=== PATIENT | female | born 1985 | race Caucasian/White ===

== ENCOUNTER 2022-11-17 16:13 | Inpatient (IN) ==
[2022-11-17] MEDS ORDERED: OXYTOCIN 30 UNITS/500 ML BAG IV PRN ×3 (16:26→22:10)
[2022-11-17] MEDS ORDERED: LIDOCAINE 1% LOCAL 20 ML VIAL INFIL PRN (16:26)
[2022-11-17 16:52] LABS: Hematocrit (blood only) 33.7 % (37.0-47.0); Mean Corpuscular Hemoglobin 28.3 pg (25.0-34.0); Mean Corpuscular Hgb Conc 32.6 g/dL (32.0-36.0); Mean Corpuscular Volume 86.6 fL (80.0-100.0); Mean Platelet Volume 9.7 fL (9.4-12.4); Platelet Count 270 K/uL (130-400); RDW Coefficient of Variation 13.5 % (11.5-14.5); RDW Standard Deviation 41.6 fL (36.4-46.3); Red Blood Count 3.89 M/uL (4.20-5.40); White Blood Count 8.81 K/ul (4.8-10.8)
--- NOTE | 2022-11-17 17:10 | History & Physical Report ---
Date of Service November 17, 2022 Assessment & Plan (1) Supervision of elderly multigravida: Plan: IUP at 41 weeks in active labor- grand multip GBS -neg requesting epidural analgesia anticipate vaginal History of Present Illness Primary Care Provider: Niko Iqbal Patient is a 36-year-old 6 para 5-0-0-5 female who presents at 41 weeks in active labor following cervical exam in the office earlier today. She is not denies ruptured membranes or bloody show. Contractions have been regular for the last 3 hours. GBS is negative. has been complicated by AMA status. testing was reassuring except polyhydramnios was diagnosed today (DVP is 9). Allergies Allergy/AdvReac Type Severity Reaction Status Date / Time No Known Allergies Allergy Verified 11/17/22 09:46 Home Medications Medication Instructions Recorded Confirmed Type prenat.vits,tara,[id number] 1 tab PO DAILY 04/08/22 11/17/22 History Patient History Medical History (Updated 11/17/22 @ 17:04 by Sol Darnell RN) No known health problems Surgical History (Updated 11/17/22 @ 17:04 by Sol Darnell RN) No history of previous surgery Social History (Updated 04/08/22 @ 17:08 by Brenda Ivy) Smoking Status: Never smoker Do You Dip or Chew Tobacco: No; marital status: marital status details: Bob (41) [phone] Current Living Situation: Spouse Current Living Situation Comment: lives with spouse, 5 children, no pets. current occupational status: unemployed Feels Safe at Home: Yes Review of Systems All systems reviewed & are unremarkable except as noted in HPI & below Physical Exam Constitutional: WD/WN, vitals as above Psychiatric: A+Ox3, euthymic affect Genitourinary: OB Exam Abdomen: + vertex, + estimated weight (8-9 pounds) and + regular contractions (Q 3-4 minutes) Manual OB Exam: + cervical dilation 6 cm, + cervical effacement 90% and + station -2 OB Exam Monitor Tracing: + external FHT monitor used, + external uterine monitor used, + category I and + normal FHT variability Coding Level of Care Code None Diagnoses Supervision of elderly multigravida O09.529
[2022-11-17] MEDS: LACTATED RINGER'S 1,000 ML IV PRN ×2 (17:30→21:37)
[2022-11-17] MEDS ORDERED: ePHEDrine sulfate 50 MG/ML AMP ONE (17:39)
[2022-11-17] MEDS ORDERED: SODIUM CHLORIDE 0.9% PF INJ 10 ML VIAL ONE (17:40)
[2022-11-17] MEDS ORDERED: LIDOCAINE 2%/EPINEPHRINE 1:200,000 20 ML PF ONE (17:40)
[2022-11-17] MEDS ORDERED: fentaNYL citrate PF 100 MCG/2 ML VIAL ONE (17:40)
[2022-11-17] MEDS ORDERED: BUPIVACAINE 0.25% PF 30 ML VIAL ONE (17:40)
[2022-11-17] MEDS ORDERED: fentaNYL 2MCG/ML ROPIVACAINE 1.25MG/ML 100 ML BAG EPI ONE (17:40)
[2022-11-17] MEDS ORDERED: BUPIVACAINE 0.25% PF 30 ML VIAL EPI STA (18:32)
[2022-11-17] MEDS ORDERED: ROPIVACAINE 0.5% PF 5 MG/ML 20 ML VIAL EPI PRN (18:32)
[2022-11-17] MEDS ORDERED: LIDOCAINE 2% MPF LOCAL 5 ML VIAL EPI PRN (18:32)
[2022-11-17] MEDS ORDERED: BUPIVACAINE 0.25% PF 30 ML VIAL EPI PRN (18:32)
[2022-11-17] MEDS ORDERED: fentaNYL citrate PF 100 MCG/2 ML VIAL EPI STA (18:32)
[2022-11-17] MEDS ORDERED: NALBUPHINE HCL INJ 10 MG/ML AMP IV PRN (18:32)
[2022-11-17] MEDS ORDERED: diphenhydrAMINE 50 MG/ML VIAL IV PRN (18:32)
[2022-11-17] MEDS ORDERED: SODIUM CHLORIDE 0.9% PF INJ 10 ML VIAL EPI STA (18:32)
[2022-11-17] MEDS ORDERED: SODIUM CHLORIDE 0.9% PF INJ 10 ML VIAL EPI PRN (18:32)
[2022-11-17] MEDS ORDERED: fentaNYL 2MCG/ML ROPIVACAINE 1.25MG/ML 100 ML BAG EPI PRN (18:32)
[2022-11-17] MEDS ORDERED: fentaNYL citrate PF 100 MCG/2 ML VIAL EPI PRN (18:32)
[2022-11-17] MEDS ORDERED: NALOXONE HCL 0.4 MG/1 ML VIAL/CARP IV PRN (18:32)
[2022-11-17] MEDS ORDERED: LIDOCAINE 2%/EPINEPHRINE 1:200,000 20 ML PF EPI STA (18:32)
[2022-11-17] MEDS ORDERED: ONDANSETRON INJ 2 MG/ML 2 ML VIAL IV PRN (18:32)
[2022-11-17] MEDS ORDERED: ePHEDrine sulfate 50 MG/ML AMP IV PRN (18:32)
[2022-11-17] MEDS ORDERED: NALOXONE HCL 1 MG in SODIUM CHLORIDE 0.9% 1000ML 1,000 ML IV PRN (18:32)
--- NOTE | 2022-11-17 18:32 | Anesthesiology Consultation ---
Date of Service November 17, 2022 Assessment & Plan Chart Review Chart Review: Patient NOT seen in Pre Admission Testing and Acceptable Risk for Labor Epidural Consults Requested none ASA ASA2 Proposed Anesthesia Anesthesia Type: Labor Epidural and CSE Risk / Benefits Reviewed With: PT / POA / Parent / Guardian, Accepts Plan and Informed Consent Obtained History Height/Weight Height: 5 ft 6 in Weight: 90.718 kg Allergies Allergy/AdvReac Type Severity Reaction Status Date / Time No Known Allergies Allergy Verified 11/17/22 09:46 Medications Home Medications Medication Instructions Recorded Confirmed Last Taken prenat.vits,tara,[id number] 1 tab PO DAILY 04/08/22 11/17/22 11/03/22 Active Medications Generic Name Dose Route Start Last Admin Trade Name Freq PRN Reason Stop Dose Admin Lactated Ringer's 1,000 mls @ 125 mls/hr 11/17/22 16:26 11/17/22 18:00 Lr IV 11/19/22 16:25 125 mls/hr .Q8H PRN Infusion L&D Protocol Protocol Past Medical History Medical History (Updated 11/17/22 @ 17:04 by Sol Darnell RN) No known health problems Exercise / Class Metabolic Activity II 4-5 Yardwork/Stairs/Walk up hill Past Surgical History Surgical History (Updated 11/17/22 @ 17:04 by Sol Darnell RN) No history of previous surgery Past Anesthesia History No Hx of Anesthesia Complications and No Family Hx of Anesthesia Complications History of PONV No Hx of PONV and No Hx of Motion Sickness Social History Smoking Status: Never smoker Do You Dip or Chew Tobacco: No Hx Alcohol Use: No Hx Substance Use: No Physical Exam Vital Signs Last Vital Signs Pulse 95 H 11/17/22 18:31 Resp 18 11/17/22 17:03 BP 102/67 11/17/22 18:31 Pulse Ox 97 11/17/22 18:26 ENMT Mouth: no dentition abnormality Thyromental Distance: > or= 3.5 Finger Breadths Mallampati Class: II Neck normal visual inspection Respiratory normal respiratory effort Auscultation: lungs clear to auscultation bilaterally Cardiovascular Rate/Rhythm: regular rate and regular rhythm Psychiatric Orientation: alert Testing Laboratory Results 11/17/22 16:36
[2022-11-17] MEDS ORDERED: HYDROCORTISONE ACETATE 25 MG SUPP PR PRN (22:10)
[2022-11-17] MEDS ORDERED: oxyCODONE/ACETAMINOPHEN 5mg/325mg TAB PO PRN (22:10)
[2022-11-17] MEDS ORDERED: DIPHTHERIA/TETANUS/PERTUSSIS Vaccine (Tdap, Age 7+yrs) 0.5mL SYR/VL IM ONE (22:10)
[2022-11-17] MEDS ORDERED: ACETAMINOPHEN 325 MG TAB PO PRN (22:10)
[2022-11-17] MEDS ORDERED: BENZOCAINE 20% AER SPR 82.5 GM CAN EXT PRN (22:10)
--- NOTE | 2022-11-17 22:32 | Delivery Summary ---
Vaginal Delivery Summary Date of Service November 17, 2022 Vaginal Delivery Summary and 1st Degree LAC Patient is a 36-year-old 6 para 5-0-0-5 female who presents at 41 weeks in active labor. She received effective epidural analgesia and progressed to complete after rupturing membranes for clear fluid. She pushed through 1 contraction for delivery of a viable male over intact perineum. The rest of the infant delivered easily and was placed on the mother's abdomen for further attention and drying. He was vigorous and crying moving all 4 limbs. After 1 minute, the cord was clamped and cut. The placenta was expressed intact with a three-vessel cord. bleeding was controlled with dilute Pitocin and fundal massage. A first-degree perineal laceration was repaired with 3-0 chromic in the usual fashion. Estimated blood loss was 200 cc. Mother and infant were doing well after delivery. [facility] [place] Charge Delivery Type Details: and 1st Degree LAC
[2022-11-17] MEDS: IBUPROFEN 600 MG TAB PO PRN (23:10)
--- NOTE | 2022-11-17 23:39 | Anesthesia Procedure Note ---
Date of Service November 17, 2022 Anesthesia Post Epidural Note Vital Signs Vital Signs: Temp Pulse Resp BP Pulse Ox 36.7 C 76 18 108/62 97 11/17/22 22:13 11/17/22 23:27 11/17/22 22:43 11/17/22 23:27 11/17/22 21:46 Pain Intensity Bilateral Episiotomy/Laceration: Pain Intensity: 2 Notes Mental Status: alert / awake / arousable Nausea / Vomiting: adequately controlled Pain: adequately controlled Airway Patency, RR, SpO2: stable & adequate BP & HR: stable & adequate Hydration State: stable & adequate Neuraxial Anesthesia: was administered and sensory block is resolving Anesthetic Complications: no major complications apparent and Pt Satisfied with anesthetic care Epidural: Removed without complications and With tip intact
[2022-11-18] MEDS: IBUPROFEN 600 MG TAB PO PRN ×5 (04:08→21:29)
--- NOTE | 2022-11-18 06:33 | Obstetrical Progress Note ---
Date of Service November 18, 2022 Assessment & Plan (1) care following vaginal delivery: Plan - Overall, feeling well and eating well today - feeding going well without concern - Urinating and passing gas appropriately - Ambulating well in room - Pain controlled w/ Ibuprofen - Hgb 11.0 on 11/17, repeat pending - Vitals stable and wnl - Routine PP care progressing well - Anticipate discharge @ 24-48 hours PP - Recommending f/u outpatient in 6 weeks Admission and Anticipated Discharge Date Admission Date: November 17, 2022 Supervising Physician Co-Signing Physician Notes Resident Physician Supervision Note: I interviewed and examined the patient. Discussed with Dr. Miner and agree with findings and plan as documented in the note. Any exceptions or clarifications are listed here: [None] Documented By: Ciarra Singer MD, FACOG Subjective Patient is a 36F who is PPD #1 following delivery at 41 1/7. She reports feeling well overall this morning. - Ambulation - well throughout room - Voiding/Olivera - independent voids, no dysuria or pressure - Gas/Stool - passing gas, no bowel movement - Diet - regular, no nausea or emesis - Lochia - diminishing, light amount - Infant Feeding Type - breast feeding - Pain Level - 2/10, controlled with Ibuprofen Review of Systems - Denies fever, chills, sweats - Denies shortness of breath, difficulty breathing, chest pain, palpitations, chest pressure. - Denies breast pain. - Denies dysuria. - Denies headache or changes in vision. Review of Systems Review of Systems: All systems reviewed & are unremarkable except as noted in HPI & below Physical Exam Physical Exam: General: Alert, oriented. No acute distress. Cardiac: RRR, normal S1/S2, no murmurs/rubs/gallops. Respiratory: Non-labored, CTAB, no wheezes/rales/rhonchi. Symmetric chest rise. Abdomen: Soft, nontender, nondistended. Bowel sounds present. Uterus: Uterine fundus firm, palpable 2 cm below umbilicus. Lower Extremities: No lower extremity edema or swelling. No deep calf pain. Emmanuel's negative bilaterally. Results & Data Vital Signs (Past 12 Hours) Vital Signs Temp Pulse Pulse Resp BP BP Pulse Ox 11/18/22 04:00 36.5 C 64 16 105/67 98 11/18/22 01:00 36.8 C 72 18 99/60 L 97 11/17/22 23:43 18 11/17/22 22:43 18 11/17/22 22:13 36.7 C 18 11/17/22 23:42 77 117/68 11/17/22 23:27 76 108/62 11/17/22 23:13 86 112/63 11/17/22 22:58 81 111/66 11/17/22 22:44 96 H 127/60 11/17/22 22:28 79 114/68 11/17/22 22:13 90 108/56 L 11/17/22 22:04 77 107/57 L 11/17/22 21:46 94 H 97 11/17/22 21:41 62 98 11/17/22 21:39 67 101/55 L 11/17/22 21:36 88 98 11/17/22 21:30 18 11/17/22 21:30 18 11/17/22 21:31 76 98 11/17/22 21:26 75 88 L 11/17/22 21:24 58 L 122/67 11/17/22 21:21 68 98 11/17/22 21:18 86 92 11/17/22 21:16 108 H 98 11/17/22 21:11 79 98 11/17/22 21:08 88 134/75 11/17/22 21:06 69 97 11/17/22 21:01 96 H 98 11/17/22 20:56 73 98 11/17/22 20:53 69 149/96 H 11/17/22 20:51 77 98 11/17/22 20:46 81 97 11/17/22 20:41 70 98 11/17/22 20:38 71 123/68 11/17/22 20:36 71 98 11/17/22 20:30 18 11/17/22 20:30 36.8 C 18 11/17/22 20:31 96 11/17/22 20:31 90 11/17/22 20:31 74 89 L 11/17/22 20:26 67 97 11/17/22 20:23 74 111/62 11/17/22 20:21 71 97 11/17/22 20:16 73 98 11/17/22 20:00 18 11/17/22 20:00 18 11/17/22 20:11 72 97 11/17/22 20:08 68 113/55 L 11/17/22 20:06 58 L 98 11/17/22 20:01 71 98 11/17/22 19:56 63 98 11/17/22 19:51 89 100 11/17/22 19:50 72 91 11/17/22 19:46 74 98 11/17/22 19:41 84 98 11/17/22 19:30 18 11/17/22 19:30 18 11/17/22 19:38 80 122/68 11/17/22 19:36 81 98 11/17/22 19:31 74 99 11/17/22 19:26 69 99 11/17/22 19:22 75 98/53 L 11/17/22 19:21 75 98 11/17/22 19:16 68 98 11/17/22 19:11 65 98 11/17/22 19:06 73 99 11/17/22 19:07 74 116/72 11/17/22 19:01 94 H 99 11/17/22 19:02 90 117/74 11/17/22 18:58 80 108/65 11/17/22 18:56 72 99 11/17/22 18:51 99 11/17/22 18:51 76 11/17/22 18:51 75 117/69 11/17/22 18:49 90 116/75 11/17/22 18:46 72 99 11/17/22 18:47 75 119/67 11/17/22 18:45 111 H 116/66 11/17/22 18:43 77 117/68 11/17/22 18:41 79 115/67 98 11/17/22 18:39 83 115/58 L 11/17/22 18:37 103 H 108/65 11/17/22 18:36 97 H 98 11/17/22 18:35 101 H 114/73 11/17/22 18:33 78 108/68 11/17/22 18:31 98 11/17/22 18:31 98 H 11/17/22 18:31 95 H 102/67 O2 Del Method 11/18/22 04:00 Room Air 11/18/22 01:00 Room Air 11/17/22 23:43 11/17/22 22:43 11/17/22 22:13 11/17/22 23:42 11/17/22 23:27 11/17/22 23:13 11/17/22 22:58 11/17/22 22:44 11/17/22 22:28 11/17/22 22:13 11/17/22 22:04 11/17/22 21:46 11/17/22 21:41 11/17/22 21:39 11/17/22 21:36 11/17/22 21:30 11/17/22 21:30 11/17/22 21:31 11/17/22 21:26 11/17/22 21:24 11/17/22 21:21 11/17/22 21:18 11/17/22 21:16 11/17/22 21:11 11/17/22 21:08 11/17/22 21:06 11/17/22 21:01 11/17/22 20:56 11/17/22 20:53 11/17/22 20:51 11/17/22 20:46 11/17/22 20:41 11/17/22 20:38 11/17/22 20:36 11/17/22 20:30 11/17/22 20:30 11/17/22 20:31 11/17/22 20:31 11/17/22 20:31 11/17/22 20:26 11/17/22 20:23 11/17/22 20:21 11/17/22 20:16 11/17/22 20:00 11/17/22 20:00 11/17/22 20:11 11/17/22 20:08 11/17/22 20:06 11/17/22 20:01 11/17/22 19:56 11/17/22 19:51 11/17/22 19:50 11/17/22 19:46 11/17/22 19:41 11/17/22 19:30 11/17/22 19:30 11/17/22 19:38 11/17/22 19:36 11/17/22 19:31 11/17/22 19:26 11/17/22 19:22 11/17/22 19:21 11/17/22 19:16 11/17/22 19:11 11/17/22 19:06 11/17/22 19:07 11/17/22 19:01 11/17/22 19:02 11/17/22 18:58 11/17/22 18:56 11/17/22 18:51 11/17/22 18:51 11/17/22 18:51 11/17/22 18:49 11/17/22 18:46 11/17/22 18:47 11/17/22 18:45 11/17/22 18:43 11/17/22 18:41 11/17/22 18:39 11/17/22 18:37 11/17/22 18:36 11/17/22 18:35 11/17/22 18:33 11/17/22 18:31 11/17/22 18:31 11/17/22 18:31 Resident Activity Tracking Resident Involvement: Resident Care Provided Care Provided: OB Delivery
[2022-11-18 06:54] LABS: Hematocrit (blood only) 29.2 % (37.0-47.0); Hemoglobin 9.5 g/dl (12.0-16.0); Mean Corpuscular Hemoglobin 28.1 pg (25.0-34.0); Mean Corpuscular Hgb Conc 32.5 g/dL (32.0-36.0); Mean Corpuscular Volume 86.4 fL (80.0-100.0); Mean Platelet Volume 9.7 fL (9.4-12.4); Platelet Count 219 K/uL (130-400); RDW Coefficient of Variation 13.5 % (11.5-14.5); RDW Standard Deviation 41.6 fL (36.4-46.3); Red Blood Count 3.38 M/uL (4.20-5.40); White Blood Count 10.96 K/ul (4.8-10.8)
[2022-11-18] MEDS: DOCUSATE SODIUM 100 MG CAP PO SCH ×2 (09:12→21:06)
[2022-11-18] MEDS: PRENATAL VITAMIN 1 TAB PO SCH (09:12)
[2022-11-18] MEDS ORDERED: bisacodyL 5 MG TABEC PO SCH (20:00)
[2022-11-19] MEDS: IBUPROFEN 600 MG TAB PO PRN ×2 (01:27→06:22)
--- NOTE | 2022-11-19 06:35 | Obstetrical Progress Note ---
Date of Service November 19, 2022 Assessment & Plan (1) care following vaginal delivery: day 2 the patient is doing well she has no extremity pain she has minimal bleeding she is breast-feeding she has no depression she wishes to go home she will be discharged later today Subjective Ambulation: ambulating normally Voiding: no voiding problems Passing Gas:: Yes Diet Tolerance:: regular diet Lochia:: Small Constitutional: + as per Subjective / HPI Physical Exam Constitutional WD/WN, vitals as above well developed and well nourished Respiratory normal respiratory effort, lungs clear to auscultation normal respiratory effort Cardiovascular RRR, no murmur, no edema Gastrointestinal (Abdomen) normal bowel sounds, soft, nontender, no hepatosplenomegaly Results & Data Vital Signs (Past 12 Hours) Vital Signs Temp Pulse Resp BP Pulse Ox O2 Del Method 11/18/22 23:36 98.1 F 77 19 97/59 L 97 Room Air 11/18/22 19:15 98.2 F 73 18 100/63 98 Room Air
[2022-11-19 07:28] LABS: Hematocrit (blood only) 29.7 % (37.0-47.0); Hemoglobin 9.6 g/dl (12.0-16.0)
[2022-11-19] MEDS: PRENATAL VITAMIN 1 TAB PO SCH (09:03)
[2022-11-19] MEDS: DOCUSATE SODIUM 100 MG CAP PO SCH (09:04)
[2022-11-19] MEDS ORDERED: bisacodyL 10 MG SUPP PR PRN (22:10)
== END 2022-11-19 12:00 | disposition home or self-care (01) | DRG 807 ==
LOC: OPB 16:13 → 4S1 16:15 → 4E2 11-18 00:45